=== PATIENT | male | born 1945 | race Caucasian/White ===

== ENCOUNTER → 2016-07-26 | Outpatient (CLI) | payer OTHER, MEDICARE, BC ==
[~2016-07-26] MED LIST: ASPIRIN 32325 MG/TAB PO; COZAAR100 MG PO; DOXYCYCLINE 10100 MG PO; KLOR-CON 1010 MEQ PO; LOPRESSOR 225 MG/TAB PO; MEN'S MULTIVITA1 TAB PO
== END ==
LOC: MHCPAIN 10:28
DX: G89.29 Other chronic pain (principal); M50.90 Cervical disc disorder, unspecified, unspecified cervical region; M54.12 Radiculopathy, cervical region
CPT/HCPCS: G0463

== ENCOUNTER → 2016-07-28 | Outpatient (CLI) | payer OTHER | LOC: MHCPAIN 11:53 | DX: M50.322 Other cervical disc degeneration at C5-C6 level (principal) ==

== ENCOUNTER → 2016-08-04 | Outpatient (CLI) | payer OTHER | LOC: MHCPAIN 14:03 | DX: M50.30 Other cervical disc degeneration, unspecified cervical region (principal) ==

== ENCOUNTER → 2016-08-12 | Outpatient (CLI) | payer OTHER | LOC: MHCPAIN 07:59 | DX: G89.29 Other chronic pain (principal); M50.123 Cervical disc disorder at C6-C7 level with radiculopathy | CPT/HCPCS: G0463 ==

== ENCOUNTER → 2017-09-07 | Outpatient (CLI) | payer MEDICARE, BC, OTHER | LOC: COL.RAD 13:00 | DX: K21.9 Gastro-esophageal reflux disease without esophagitis (principal) ==

== ENCOUNTER 2017-09-12 13:29 | Day surgery (SDC) | payer MEDICARE, BC, OTHER ==
[~2017-09-12] VITALS: Ht 182.9 cm; Wt 117.0 kg
[2017-09-12] MEDS ORDERED: CARDIZEM CD 18180 MG PO (13:53)
[2017-09-12] MEDS ORDERED: ALDACTONE 25MG25 M1 PO (13:53)
[2017-09-12] MEDS ORDERED: PRILOSEC 20MG20 MG PO (13:54)
[2017-09-12 14:16] VITALS: BP 139/86; PULSE 76; TEMP 98.6
[2017-09-12 16:10] VITALS: BP 107/76; PULSE 68; TEMP 97.5
[2017-09-12 16:15] VITALS: BP 117/80; PULSE 70
[2017-09-12 16:30] VITALS: BP 105/79; PULSE 68
[2017-09-12 16:45] VITALS: BP 108/78; PULSE 64
== END 2017-09-12 16:55 | disposition home or self-care (01) ==
LOC: SDCO 13:29
DX: K29.30 Chronic superficial gastritis without bleeding (principal); K21.9 Gastro-esophageal reflux disease without esophagitis; E11.9 Type 2 diabetes mellitus without complications; I10 Essential (primary) hypertension; Z79.82 Long term (current) use of aspirin; Z88.8 Allergy status to other drugs, medicaments and biological substances
CPT/HCPCS: OP; J2250; J3010; J7030